=== PATIENT | female | born 1975 | race Caucasian/White ===

== ENCOUNTER 2018-11-23 10:49 | Inpatient (IN) | payer OTHER ==
--- NOTE | 2018-11-23 10:54 | EDPHY ---
H & P Time Seen by Provider: 11/23/18 10:53 HPI/ROS: CHIEF COMPLAINT: Mental health hold for grave disability HISTORY OF PRESENT ILLNESS: Patient arrives on a mental health hold placed by psychiatrist at [facility]. History of schizophrenia has been off medications wandering partially clothed in the streets recently lost her purse. She was placed on a mental health hold prior to arrival. Denies medical complaints, but altered and perseverating on arrival asking "can I call you Jack? " Further history and review of systems not obtainable because the patient just is perseverating, asking me multiple times "are you Jack? Can I call you Jack?" PAST MEDICAL HISTORY: Paranoid schizophrenia Social history: Unable due to altered mental status. [facility] client/ patient. Lives with parents. Social history from Dr. Watson, patient's psychiatrist, spoke with her at 1115. General Appearance: Alert and ambulatory, mildly agitated. Eyes: No scleral icterus. ENT, Mouth: Normal mucous membranes. Respiratory: Normal respiratory effort, breath sounds equal, lungs are clear to auscultation. Cardiovascular: Regular rate and rhythm. Gastrointestinal: Abdomen is soft and non tender. Neurological: Alert, ambulatory. Will follow simple commands but is rambling and without clear answers questions as documented in the HPI. Skin: Warm and dry, no rashes. She arrived with lipstick all over her forehead and both cheeks. Musculoskeletal: No extremity deformity or tenderness. Psychiatric: See HPI. Emergency Department course/MDM: Arrives on a mental health hold. It is placed by her psychiatrist for grave disability. Plan for labs and urine, mental health evaluation for psychiatric inpatient placement. Differential considered including but not limited to schizophrenia, drug abuse, alcohol intoxication, metabolic problem. Patient very agitated and uncooperative despite reassurance, given 10 mg of Haldol and 2 mg Ativan for sedation for her agitation and psychosis and to facilitate appropriate evaluation in the emergency department. 1426: The patient will be transferred to [facility] for inpatient psychiatric hospital bed not available at this facility, in stable condition; accepting physician is Dr. Luo. EMTALA form completed. Constitutional: Initial Vital Signs Temperature (C) 36.8 C 11/23/18 10:49 Heart Rate 100 11/23/18 10:49 Respiratory Rate 18 11/23/18 10:49 Blood Pressure 120/87 H 11/23/18 10:49 O2 Sat (%) 97 11/23/18 10:49 O2 Delivery Mode Room Air Allergies/Adverse Reactions: No Known Allergies Allergy (Unverified 11/23/18 11:11) Home Medications: Medication Instructions Recorded Unobtainable 11/23/18 Medical Decision Making - Data Points Laboratory Results: Laboratory Results 11/23/18 11:09 11/23/18 11:09 11/23/18 11/23/18 11/23/18 11:09 11:09 11:09 WBC 7.39 10^3/uL 10^3/uL (3.80-9.50) RBC 4.19 10^6/uL 10^6/uL (4.18-5.33) Hgb 13.4 g/dL g/dL (12.6-16.3) Hct 38.3 % % (38.0-47.0) MCV 91.4 fL fL (81.5-99.8) MCH 32.0 pg pg (27.9-34.1) MCHC 35.0 g/dL g/dL (32.4-36.7) RDW 13.4 % % (11.5-15.2) Plt Count 316 10^3/uL 10^3/uL (150-400) MPV 9.4 fL fL (8.7-11.7) Neut % (Auto) 65.0 % % (39.3-74.2) Lymph % (Auto) 24.0 % % (15.0-45.0) Baca % (Auto) 9.3 % % (4.5-13.0) Eos % (Auto) 1.2 % % (0.6-7.6) Baso % (Auto) 0.4 % % (0.3-1.7) Nucleat RBC Rel Count 0.0 % % (0.0-0.2) Absolute Neuts (auto) 4.80 10^3/uL 10^3/uL (1.70-6.50) Absolute Lymphs (auto) 1.77 10^3/uL 10^3/uL (1.00-3.00) Absolute Monos (auto) 0.69 10^3/uL 10^3/uL (0.30-0.80) Absolute Eos (auto) 0.09 10^3/uL 10^3/uL (0.03-0.40) Absolute Basos (auto) 0.03 10^3/uL 10^3/uL (0.02-0.10) Absolute Nucleated RBC 0.00 10^3/uL 10^3/uL (0-0.01) Immature Gran % 0.1 % % (0.0-1.1) Immature Gran # 0.01 10^3/uL 10^3/uL (0.00-0.10) Sodium 137 mEq/L mEq/L (135-145) Potassium 3.7 mEq/L mEq/L (3.5-5.2) Chloride 106 mEq/L mEq/L (97-110) Carbon Dioxide 22 mEq/l mEq/l (22-31) Anion Gap 9 mEq/L mEq/L (6-14) BUN 15 mg/dL mg/dL (7-23) Creatinine 0.7 mg/dL mg/dL (0.6-1.0) Estimated GFR > 60 Glucose 122 mg/dL H mg/dL (70-100) Calcium 9.1 mg/dL mg/dL (8.5-10.4) Beta HCG, Qual NEGATIVE Ethyl Alcohol < 10 mg/dL mg/dL (0-10) Medications Given: Discontinued Medications Haloperidol Lactate (Haldol Injection) 10 mg IM EDNOW ONE Stop: 11/23/18 12:22 Last Admin: 11/23/18 12:34 Dose: 10 mg Lorazepam (Ativan Injection) 2 mg IM EDNOW ONE Stop: 11/23/18 12:21 Last Admin: 11/23/18 12:34 Dose: 2 mg Departure - Departure Disposition: Other Psych, Not [place] Clinical Impression: Schizophrenia Qualifiers: Schizophrenia type: paranoid schizophrenia Qualified Code(s): F20.0 - Paranoid schizophrenia Condition: Fair Referrals: Patient,NotPresent [Primary Care Provider] - As per Instructions
[2018-11-23 11:17] LABS: PLATELET COUNT 316 10^3/uL (150-400)
[2018-11-23] MEDS ORDERED: LORazepam 2 MG/ML INJ IM ONE (12:20)
[2018-11-23] MEDS ORDERED: HALOPERIDOL LACT 5 MG/ML INJ IM ONE (12:21)
--- NOTE | 2018-11-23 17:29 | ASMTTLCEVL ---
[facility] Evaluation - Basic Information Evaluation Start Date and 11/23/2018 12:00 PM Time Hospital Status Answers: M1 Hold 72-hr M1 Hold Start Date 11/23/2018 09:50 AM and Time Patient statement Notes: Are we in [place]? I was born in [place]. Can I have a turkey [place]? Narrative Notes: Pt is a 43 year old female with a history of schizophrenia. Pt was sent from her psychiatrist Dr. Christina Watson at [facility] on an M1 hold that noted, " 43 year old woman with a hx of schizophrenia. Currently gravely disabled walking the streets partially clothed, recently lost her car, purse and phone. , not sleeping, unable to express self due to high level of confusion and disorganization, no taking medication, cannot be re-directed. Requires hospital for stabilization for safety." Per Dr. Watson, pt has been overtaking her Dexedrine and not taking her haldol. Pt recently took her family's car without permission. Pt does the best on Clozaril and vraylar. Pt presents as disorganized and disheveled. When this handbook writer began the evaluation, pt stated, " Can I have a turkey sandwich? I'd rather not talk. I would like to request risperdal. It's an antipsychotic. Really, I'd rather not talk anymore." Pt was unable to participate in the evaluation. Pt was given Haldol 10mg IM and 2mg IM at 12:34pm in the ED. The information collected for this evaluation was obtained from pt's Father Jeff. [facility] stated that pt was hospitalized at [facility] in July 2018. When she discharged, she appeared to be doing better for awhile but then she regressed. [facility] stated pt went "running around outside without any clothes:. [facility] stated pt went back to [facility], however the dates are unclear. [facility] stated pt had been improving following this 2nd hospitalization, then in September/October, pt's behavior became "erratic." [facility] states that last several weeks, she stays up until 3am every night. This past Friday, pt returned home without her car and did not know where her car was. [facility] stated he called the police and they were able to locate the car at a lingerie store near [facility]. [facility] stated pt was unable to communicate what had happened. Diagnosis History Notes: Pt has a hx of schizophrenia. Prior suicide attempts Notes: Per FOC, pt had one overdose when she was in college. FOC stated he is not sure if it was suicide attempt or not but pt [place] to [place]. Pt overdosed and was "found by someone." FOC stated pt was hospitalized following that overdose but he does not remember where. Prior hospitalizations Notes: [facility] July 2018. [facility] stated pt was hospitalized two more times at [facility] following her July 2018 hospitalization. Treatment Responses Notes: Pt appears to decompensate and is not medication compliant. History of violence Notes: Per father, pt does not have a hx of violence. [facility]: Dr. Christina Watson [phone] Medications (name, dosage, route, freq uency) Notes: Haldol 5mg and Dexedrine 10mg TID, Per Dr. Watson, pt elizondo't been taking her Haldol. Pt's father stated pt "is addicted to the dexedrine., but it really does seem to help her symptoms." In the past, pt took Clozaril and Vrayler and those medications worked best per Dr. Watson Allergies/Reaction Notes: Nka Sleep Notes: Per FOC, pt has been staying up until 3am every night. He does not believe pt has been getting sufficient amount of sleep. Appetite Notes: [facility] stated , he has observed pt eating more sweets than she normally does. Medical/Surgical history Notes: [facility] stated pt may have had Tardive Dyskenisia but is not sure. Substance use history (frequency, intensity, his tory, duration) Notes: Unable to obtain a hx from pt, but [facility] reports that pt has been using marijuana. Family composition Notes: Pt lives with her parents. Need for family Answers: Yes participation in patient's care Family psychiatric/substance abuse history Notes: Unable to assess. Developmental history Notes: [facility] stated pt had normal childhood development prior to her senior year in High School when she began showing symptoms of schizophrenia. Marital status/children Notes: Unmarried, no children. Living situation Notes: Pt lives with her parents. Sexual history/orientation Notes: Unable to assess. Peer support/family strengths Notes: Unable to assess. Education level/history Notes: Per [facility], pt attended [employer], completed 1 year and then had to drop out. Pt then enrolled at , but ultimately dropped out as well. Work history Notes: Pt is on disability. Notes: None Legal Notes: None reported. Mandaeism/Spiritual Notes: Unable to assess Leisure Notes: Per FOC, pt enjoys making jewelry and abstract art. Collateral Notes: Father-Jeff Dr Christina Watson Patient's strengths Answers: Artistic/Creative/Musical (Please select at least TWO strengths): Supportive Family [facility] Evaluation - Mental Status Exam Appearance: Answers: Disheveled Eye Contact: Answers: Absent Mood: Answers: Euthymic Affect: Answers: Distracted Behavior: Answers: Inappropriate Restless Wandering Speech: Answers: Irrelevant Hypersexual Thought Process: Answers: Disorganized Disoriented Insight: Answers: Poor Judgement: Answers: Poor Pt reported to have Answers: No suicidal/self-injuring ideation/behavior? Pt reported to be making Answers: No suicidal/self-injuring threats? Pt reported to have Answers: No aggression/assault ideation/behavior? Pt reported to be making Answers: No aggression/assault threats? Pt exhibits inability to Answers: Yes care for self/grave disability? Ideation/behavior is Answers: No chronic? Patient has a specific Answers: No plan? Pt has access to means to Answers: No execute the plan? Ideation involves Answers: No serious/lethal intent? Ideation has Answers: No delusional/hallucinatory content? History of Answers: Yes suicidal/self-injuring ideation, behavior, or threats? History of Answers: No aggressive/assaultive ideation, behavior, or threats? History of serious Answers: No physical harm to self/others while in treatment setting? [facility] Evaluation - Suicide/Homicide Risk Suicide Risk Factors: Answers: Schizophrenia Homicide/violence risk Answers: None factors: Current Suicidal Answers: No Ideation? Suicide Internal Answers: Other Notes: Unable to assess. Protective Factors: Suicide External Answers: Other Notes: Unable to assess Protective Factors: Ranking of patient's Answers: Low suicidal risk: Ranking of patient's Answers: Low homicidal risk: [facility] Evaluation - Wrap-up BDI Total Score: Unable to complete BSS Total Score: Unable to complete AXIS I Diagnosis (include DSM-V and ICD-10 codes), must also be entered in [employer], which is the source of truth. Notes: Schizophrenia 295.90 (F20.9) In consultation with [facility] ED physician, Anton Merida MD and on-call psychiatrist, Edvin Luo MD, both concurred that pt appears to meet 27-65 criteria requiring psychiatric hospitalization as pt appears to be gravely disabled due to a mental illness condition. . Pt was read the Patient Rights and Responsibilities Statement 11/23/18 14:40 and pt given photocopy of Rights. Pt declined to sign pt rights. Pt was given the 3N prohibited belongings list while in the ED. Date Signed: 11/23/2018 03:10 PM Electronically Signed By:Ara Salazar
--- NOTE | 2018-11-23 17:35 | ASMTTCLDSP ---
TLC Discharge Disposition Disposition: Answers: Admit Discharge Concerns/Recommendations: Notes: In consultation with [facility] ED physician, Anton Merida MD and on-call psychiatrist, Edvin Luo MD, both concurred that pt appears to meet 27-65 criteria requiring psychiatric hospitalization as pt appears to be gravely disabled due to a mental illness condition. . Pt was read the Patient Rights and Responsibilities Statement 11/23/18 14:40 and pt given photocopy of Rights. Pt declined to sign pt rights. Pt was given the 3N prohibited belongings list while in the ED. Was patient given the Answers: Yes Inpatient Behavioral Health Prohibited Belongings List while in the ED? For inpatient Edvin Luo MD admission, the following psychiatrist agreed to accept patient for admission to Behavioral Health ([facility]): Date Signed: 11/23/2018 03:11 PM Electronically Signed By:Ara Salazar
[2018-11-23] MEDS ORDERED: ACETAMINOPHEN 325 MG TAB PO PRN (18:48)
[2018-11-23] MEDS ORDERED: OLANZapine DISINTEGR 5 MG TAB PO PRN (18:48)
[2018-11-23] MEDS ORDERED: MAG HYDROX/AL HYDROX/SIMETH 30 ML UDCUP PO PRN (18:48)
[2018-11-23] MEDS ORDERED: LORazepam 0.5 MG TAB PO PRN (18:48)
[2018-11-23] MEDS ORDERED: MAGNESIUM HYDROXIDE 30 ML UDCUP PO PRN (18:48)
[2018-11-23] MEDS ORDERED: OLANZapine DISINTEGR 10 MG TAB PO SCH (21:00)
--- NOTE | 2018-11-24 07:34 | ASMTBHMTP ---
Master Treatment Plan Master Treatment Plan Answers: Mood Instability with for: Psychosis Date: 11/23/2018 Diagnosis on Admission: Schizophrenia 295.90 (F20.9) Expected length of stay: 3-5 Days Reason for admission: Notes: Per Report: Pt is a 43 year old female with a history of schizophrenia. Pt was sent from her psychiatrist Dr. Christina Watson at [facility] on an M1 hold that noted, " 43 year old woman with a hx of schizophrenia. Currently gravely disabled walking the streets partially clothed, recently lost her car, purse and phone. , not sleeping, unable to express self due to high level of confusion and disorganization, no taking medication, cannot be re-directed. Requires hospital for stabilization for safety." Per Dr. Watson, pt has been overtaking her Dexedrine and not taking her haldol. Pt recently took her family's car without permission. Pt does the best on Clozaril and vraylar. Pt presents as disorganized and disheveled. When this insurance writer began the evaluation, pt stated, " Can I have a turkey sandwich? I'd rather not talk. I would like to request risperdal. It's an antipsychotic. Really, I'd rather not talk anymore." Pt was unable to participate in the evaluation. Pt was given Haldol 10mg IM and 2mg IM at 12:34pm in the ED. The information collected for this evaluation was obtained from pt's Father Jeff. [facility] stated that pt was hospitalized at [facility] in July 2018. When she discharged, she appeared to be doing better for awhile but then she regressed. [facility] stated pt went "running around outside without any clothes:. [facility] stated pt went back to [facility], however the dates are unclear. [facility] stated pt had been improving following this 2nd hospitalization, then in September/October, pt's behavior became "erratic." [facility] states that last several weeks, she stays up until 3am every night. This past Friday, pt returned home without her car and did not know where her car was. [facility] stated he called the police and they were able to locate the car at a lingerie store near [facility]. [facility] stated pt was unable to communicate what had happened. Patient's stated presenting problems: Notes: "I need to stabilize on my medications." Patient's goals for treatment: Notes: "get meds to work." Patient's strengths: Notes: "Some" Identify supports outside of hospital: Notes: "Family and Friends" Discharge criteria: Notes: Patient will demonstrate more stable mood by discharge. Initial disposition plan/considerations: Notes: "Return home with parents." Master Treatment Plan Required Signatures Psychiatrist signature: Answers: Psychiatrist: RN on-shift signature: Answers: RN: Patient signature: Answers: Patient: Date Signed: 11/24/2018 07:34 AM Electronically Signed By:Jose G Durham
[2018-11-24] MEDS ORDERED: RISPERIDONE 1 MG ODT TAB SL PRN (07:56)
[2018-11-24] MEDS: PALIPERIDONE 3 MG TAB.ER PO SCH (08:22)
--- NOTE | 2018-11-24 10:12 | BAPA ---
[f rep st] ADMISSION PSYCHIATRIC ASSESSMENT DATE OF SERVICE: 11/24/2018 CHIEF COMPLAINT: "I really don't want to talk right now. I just want coffee. Where's the coffee. I just want coffee." This SUPERVISOR [employer] discusses medications with patient as recommended by patient's outpatient psychiatrist. The patient reports she is not interested in starting Clozaril or Vraylar. Patient requests risperidone. Discussed options, risks and benefits with the patient, including trial of Invega. The patient agrees to begin Invega 6 mg p.o. daily. Patient then walks away from this SUPERVISOR SHEET [employer]URING, reports she does not want to provide any further information for evaluation and continues to perseverate on wanting coffee. HISTORY OF PRESENT ILLNESS: From the ED note dated 11/23/18, the patient arrived to the emergency department on an M1 hold that was placed by the patient 's psychiatrist at [facility]. The patient has a history of schizophrenia and has been off her medications, wandering, partially clothed in the streets, recently lost her purse. The patient was placed on an M1 hold prior to arriving to the emergency department. The patient's mental status was reported as altered and patient was perseverating on arrival, asking "can I call you Jack?" The patient asked the question multiple times, "Are you, Jack? Can I call you Jack?" From the [facility] evaluation dated 11/23/18, the patient was placed on a 72-hour M1 hold with start date and time of 11/23/18, at 9:50 a.m. Patient reported to the [facility] journeyman sheet metal worker, "Are we in [place]? I was born in [place]. Can I have a turkey sandwich?" M1 hold states that the patient is a 43-year-old woman with history of schizophrenia, currently gravely disabled, walking the streets partially clothed, recently lost her car, purse and phone. Not sleeping. Unable to express herself due to high level of confusion and disorganization. Not taking medications. Cannot be redirected. Requires hospital for stabilization for safety. The patient reportedly abusing Dexedrine and not taking Haldol as prescribed. The patient recently took her family's car without permission. The patient's outpatient psychiatrist reported patient has done well on Clozaril and Vrylar in the past. The patient has also been on risperidone in the past. However, reportedly the patient had made reports to her parents that she did not like the way risperidone made her feel. The patient also has been on Haldol in the past. This SUPERVISOR SHEET MANUFACTURING spoke to patient's outpatient psychiatrist, Dr. Watson, prior to meeting with the patient and Dr. Watson provided this information and also agreed with Invega 6 mg p.o. daily if patient agreed to begin this medication. Plan would be to begin patient on Invega and switch to long-acting injectable prior to discharge as patient has a history of nonadherence to taking medications as prescribed. For further details and more specific details to the patient's walking the streets, losing car, purse and phone, please refer to the [facility] evaluation. TREATMENT TEAM MEETING: Patient refused to join treatment team meeting this morning. PAST PSYCHIATRIC HISTORY: The patient has a history of schizophrenia. According to patient's father, as reported to [facility] journeyman sheet metal worker, patient has had 1 suicide attempt by overdose while in college. However, father also reported that he is not sure if it was a suicide attempt, but patient drove to the [facility] border to buy pills. Patient overdosed and was "found by someone." The patient's father reported the patient was hospitalized following that overdose and he does not remember where. The patient has been hospitalized at [facility] in July of 2018. The patient's father reported the patient was hospitalized 2 more times at [facility] following her July 2018 hospitalization. The patient's father reported the patient has been staying up until 3 a.m. every night and he reported that he believes patient has not been getting sufficient amount of sleep. ALLERGIES: No known allergies. CURRENT MEDICATIONS: 1. Tylenol 650 mg p.o. q.4 hours p.r.n. 2. Ativan 0.5 to 1 mg p.o. q.4 hours p.r.n. 3. Maalox syrup 30 mL p.o. q.6 hours p.r.n. 4. Milk of magnesia 30 mL p.o. daily p.r.n. 5. Nicorette 2 mg q.1 hour p.r.n. 6. Invega 6 mg p.o. daily. 7. Risperdal M 1 mg SL q.6 hours p.r.n. PAST MEDICAL/SURGICAL HISTORY: There is no medical or surgical history reported. The patient's father reported to the [facility] journeyman sheet metal worker that the patient may have been hospitalized in the past for tardive dyskinesia, but he is not sure. This SUPERVISOR SHEET MANUFACTURING spoke to the patient's outpatient psychiatrist, Dr. Watson. Dr. Watson said that the patient has not had tardive dyskinesia in the past; however, has had some EPS symptoms. No recent EPS symptoms reported. The patient currently has no EPS symptoms. SOCIAL HISTORY: The patient's father reported the patient had normal childhood development prior to her senior year in high school when she began showing symptoms of schizophrenia. The patient is not and has no children. The patient resides with her parents. The patient attended [employer], completed 1 year and then had to drop out. The patient then enrolled at , but ultimately dropped out as well. The patient is currently on disability and is not working. The patient has no history of duty. No legal history reported. No moravian or spiritual practice reported. The patient's father reported patient enjoys making jewelry and abstract art for leisure activities. SUBSTANCE USE HISTORY: Patient's father reported the patient has been using marijuana. No other substance use history reported. Will continue to gather substance use history throughout the course of the patient's hospitalization. FAMILY PSYCHIATRIC HISTORY: No family psychiatric history reported. Will continue to gather patient's family psychiatric history throughout the course of the patient's hospitalization. ADMISSION LABS AND STUDIES: 1. CBC within normal limits. 2. BMP within normal limits except glucose is elevated at 122. 3. Hemoglobin A1c pending. 4. Liver function within normal limits except AST is elevated at 78, ALT elevated at 54. 5. Lipid panel within normal limits except triglycerides are low at 31, cholesterol low at 126, LDL cholesterol calculated low at 50, VLDL cholesterol low at 6, non-HDL cholesterol low at 56, LDL/HDL ratio low at 0.71. 6. TSH within normal limits at 1.010. 7. Beta HCG qualitative test negative. 8. Toxicology screen: Ethyl alcohol level 0. MENTAL STATUS EXAM: The patient is a well-nourished female looking stated chronological age. Attire is appropriate. Dress is hospital garb. Grooming status is inappropriate and disheveled. Ambulation is independent. Gait is normal and coordinated. Posture is normal and relaxed. Eye contact is inappropriate, avoided. Motor activity is appropriate with purposeful, organized, coordinated movements with no involuntary movements noted. Attitude is uncooperative, guarded, defensive. The patient appears disinterested, distractible, and does not relate well to this interviewer. Language production is spontaneous. Rate is fluent. Latency of response is adequate with variable tone. Articulation is clear. Patient reports mood as "okay" with inappropriate affect. The patient's affect is constricted. The patient's thought process is nonlinear and illogical with loose associations. Patient is easily derailed and distracted. The patient's thought process is disorganized. The patient does not report suicidal or homicidal thoughts, ideas, or plans. The patient denies auditory or visual hallucinations. Patient denies delusions. The patient does not appear to be attending to internal stimuli. The patient is oriented to person and place. The patient's attention and concentration are poor. Patient's insight and judgment are poor. The patient does not report undesirable side effects from current medications. DIAGNOSES: Based on the patient's history and current presentation, the patient 's diagnoses are: 1. Schizophrenia. 2. Cannabis use disorder, unknown severity. FORMULATION: The patient is a 43-year-old female, single, unemployed, living with her parents and is treated by Dr. Watson, psychiatrist at [facility]. Patient placed on an M1 hold due to grave disability. Presents involuntarily and is hospitalized for safety, crisis stabilization, and medication management. The patient requires continued inpatient care because of current acute psychosis. The patient presents with problems of medication nonadherence, abusing Dexedrine. The patient's life has been affected by these problems including the inability to attend to her ADLs and to appropriately communicate her basic needs. The patient is also engaged in high-risk behaviors ; see HPI above. The exacerbation of symptoms was due to patient's nonadherence to prescribed medications. The patient has a past psychiatric history of schizophrenia. The patient has a history of doing well tolerating and responding to psychotropic medications in the past including risperidone, Clozaril and Vrylar. The patient has also been on Haldol in the past. In consult with the patient's outpatient psychiatrist, will begin Invega 6 mg p.o. daily with plan to begin long-acting injectable prior to discharge due to patient's long history of nonadherence. The patient is a high suicide safety. The patient is a high safety risk due to current acute psychosis. Protective factors while hospitalized include ongoing safety checks, active involvement in treatment and support from our treatment team. Patient could benefit from inpatient hospitalization for safety, crisis stabilization, and medication evaluation. PLAN: 1. Medications: After reviewing options, risks and benefits with the patient, the patient agrees to continue current medications listed above. 1. Psychotropic medications: After reviewing options, risks, and benefits with the patient, patient agrees to continue current medications with following changes: ____. No other medication changes at this time as more time is needed to determine ongoing tolerability and efficacy. Plan is to continue to observe patient for response and side effects from medications, and ongoing monitoring and evaluation. 2. Review with patient informed consent and recommendations for psychotropic medication treatment listed below 3. Labs: no additional labs at this time 4. Therapy: continue milieu and group therapy 5. Further investigation including gathering information from patients relatives and review of past case records to inform treatment plan. 6. Safety/Wellness plan and follow-up outpatient appointments to be established prior to discharge. Next steps are for patient to meet with restorative care technician to plan a safe discharge plan and establish outpatient services for ongoing treatment. 7. Confer with inpatient treatment team regarding treatment plan. 8. Address psychosocial stressors by meeting with senior caregiver to establish discharge plan including referrals for outpatient services. 9. Legal status: M1 10. Consider discharge next week if patient is in stable condition, safe, and has a safe discharge plan. 11. Substance abuse interventions: cannabis ESTIMATED LENGTH OF STAY: 7-10 days PSYCHOTROPIC MEDICATION TREATMENT INFORMED CONSENT and RECOMMENDATIONS: Review nature of condition, diagnosis, and prognosis. Review nature and purpose of psychotropic medication treatment. Review type of psychotropic medications being ordered. Review risk and benefits of psychotropic medication treatment. Review probable length of time will need to take medications. Review risk and benefits of not undergoing psychotropic medication treatment. Review alternative treatments to psychotropic medications. Review psychotropic medications contraindications, drug-drug interactions, side effects, and importance of reporting any side effects to a psychiatric provider or nurse during inpatient hospitalization, and upon discharge to patients psychiatric outpatient provider, primary care provider, or other health pediatric care coordinator. Review importance of asking a nurse, psychiatric provider, or primary care provider any questions or problems concerning the psychotropic medications. Verify patient understands the information that has been provided, and understands, accepts, and agrees to psychotropic medications. Review patients safety plan and importance of patient to communicate to staff while hospitalized if patient is ever a danger to self/others, or unable to care for self, and upon discharge, the importance for patient to contact [place] [facility] or [facility], or go to the nearest emergency room, if patient is ever a danger to self/others, or unable to care for self. Recommend that upon discharge patient establish medication management treatment with a psychiatric provider, establishes routine therapy appointments, and follow-up with primary care provider. Verify patient understands and agrees to these recommendations. /[id number]/MODL ESSENCE
--- NOTE | 2018-11-24 10:47 | ASMTCMCOM ---
CM Note CM Note Notes: Client completed MTP and ARELY for [facility] and [facility]. Client mostly sleeps through out the day and presents as disorganized when waken. Client poss. self-pay, Medicaid was alerted for a screen. Client refused to participate in treatment team meeting today and continues to self through out the day. Date Signed: 11/24/2018 10:46 AM Electronically Signed By:Jose G Durham
--- NOTE | 2018-11-24 11:46 | PDMN ---
Medical Necessity Medical necessity: Pt meets inpt criteria per MD order and [facility] M-014-IP, Schizophrenia Spectrum Disorders, Adult: Inpatient Care, 6 days. 43 y/o w/hx schizophrenia currently on M1 hold due to grave disability, admitted w/ schizophrenia and cannabis use disorder, unknown severity, pt requires inpt psychiatric care b/c of current acute psychosis.
--- NOTE | 2018-11-24 13:47 | PDCONSULT ---
[employer] Note: Patient is a 43-year-old female after being placed on a mental health hold by a psychiatrist at [facility]. Per chart review patient has a history of schizophrenia and has been off medications wandering around in the streets partially closed. During the interview she refused to tell me why she was here if anything was wrong with her or any of her medical history. Details and history obtained through chart review and discussion with mental health providers. Past medical history Apparently paranoid schizophrenia Social history Unable to obtain due to acutely altered mental status. Patient lives with parents apparently at times. Surgical history Unable to obtain Family history Unable to obtain Allergies Through chart review no known drug allergies Review of systems Unable to obtain review of systems as patient unwilling to cooperate and acutely mentally ill Vital signs Blood pressure 120/87 and heart rate 100 respiration 18 saturating 97% on room air temperature 36.8 degrees C Examination General alert and ambulatory but mildly agitated HEENT PERRLA mucous members are moist pink and acyanotic head is atraumatic normocephalic Lungs clear to auscultation bilaterally Cardiovascular regular rate and rhythm Abdomen is soft nontender nondistended in all 4 quadrants without organomegaly with no costovertebral angle tenderness Extremities but no colonic clubbing cyanosis edema or calf pain Skin warm and dry no rashes no lesions or ecchymosis Musculoskeletal no extremity deformities or tenderness Neuro cranial nerves 2-12 grossly intact no focal neurologic deficits Lymph no lymphadenopathy Assessment plan 43-year-old female with a history of paranoid schizophrenia admitted on a mental health hold for acute psychoses Acute psychoses Management per Psychiatry Rule out toxication although review of labs no alcohol and a negative tox screen Check TSH Hyperglycemia no known history of diabetes A1c pending Transaminitis-this may be secondary to medications, drugs or alcohol abuse. Drug levels negative as well as alcohol level Would monitor LFTs Chart and records reviewed S the patient is new to me
[2018-11-25] MEDS: PALIPERIDONE 3 MG TAB.ER PO SCH (08:56)
[2018-11-25] MEDS: NICOTINE POLACRILEX 2 MG GUM B PRN ×2 (09:19→16:19)
--- NOTE | 2018-11-25 10:38 | SOAPPROG ---
SOAP Progress Note Assessment/Plan: Assessment: Schizophrenia, Cannabis Use Disorder. No improvement noted (see subjective/ objective note). Patient is not safe to discharge at this time as patient continues to exhibit signs of psychosis, and express psychosis symptoms. Patient requires continued inpatient care because of current psychosis, and requires inpatient level of care to stabilize in order to no longer be gravely disabled due to mental illness. Patients support system has inability to manage functional impairment at lower level of care. Patients thought process is disorganized, patient is withdrawn from social interactions, is unable to independently and appropriately attend to ADLS and appropriately communicate her basic needs. Patient could benefit from continued inpatient hospitalization for crisis stabilization, safety, and medication evaluation. Plan: 1. Continue current medications. 2. Review with patient informed consent and recommendations for psychotropic medication treatment listed below 3. Labs: no additional labs at this time 4. Therapy: continue milieu and group therapy 5. Further investigation including gathering information from patients relatives and review of past case records to inform treatment plan. 6. Safety/Wellness plan and follow-up outpatient appointments to be established prior to discharge. Next steps are for patient to meet with janitor caretaker to plan a safe discharge plan and establish outpatient services for ongoing treatment. 7. Confer with inpatient treatment team regarding treatment plan. 8. Psychosocial stressors addressed through sample case porter. 9. Legal status: M1 10. Consider discharge tomorrow if patient is in stable condition, safe, and has a safe discharge plan. 11. Substance abuse interventions: THC PSYCHOTROPIC MEDICATION TREATMENT INFORMED CONSENT and RECOMMENDATIONS: Review nature of condition, diagnosis, and prognosis. Review nature and purpose of psychotropic medication treatment. Review type of psychotropic medications being ordered. Review risk and benefits of psychotropic medication treatment. Review probable length of time patient will need to take medications. Review risk and benefits of not undergoing psychotropic medication treatment. Review alternative treatments to psychotropic medications. Review psychotropic medications contraindications, drug-drug interactions, side effects, and importance of reporting any side effects to a psychiatric provider or nurse during inpatient hospitalization, and upon discharge to patients psychiatric outpatient provider, primary care provider, or other health child care attendant. Review importance of asking a nurse, psychiatric provider, or primary care provider any questions or problems concerning the psychotropic medications. Verify patient understands the information that has been provided, and understands, accepts, and agrees to psychotropic medications. Review patients safety plan and importance of patient to report to staff while hospitalized if patient is ever a danger to self/others, or unable to care for self, and upon discharge, the importance for patient to contact [place] [facility] or [facility], or go to the nearest emergency room, if patient is ever a danger to self/others, or unable to care for self. Recommend that upon discharge patient establish medication management treatment with a psychiatric provider, establishes routine therapy appointments, and follow-up with primary care provider. Verify patient understands and agrees to these recommendations. 11/25/18 10:42 Subjective: Following up with patient for evaluation of psychosis and safety. Patient reports, "What about the stimulants? I take Dexedrine in the morning." Patient reports no side effects from current medications, and agrees to continue current medications. Objective: Vital Signs Temp Pulse Resp BP Pulse Ox 36.8 C 57 L 12 123/69 H 95 11/23/18 18:13 11/23/18 18:13 11/23/18 18:13 11/23/18 18:13 11/23/18 18:13 MSE: The patient is a well-nourished female looking older chronological age. Attire is appropriate and dress is casual. Grooming status is appropriate. Ambulation is independent. Gait is normal and coordinated. Posture is normal and relaxed. Eye contact is appropriate. Motor activity is appropriate with purposeful, organized, coordinated movements; with no involuntary movements. Attitude is uncooperative. Patient appears disinterested and distractible and does not relate well to this interviewer. Language production is spontaneous. R/R/V normal. Articulation is clear. Patient reports mood as okay with incongruent constricted affect. Patients thought process is non-linear and illogical. Disorganized and nonsensical. Patient denies suicidal thoughts, denies homicidal ideation. Patient denies auditory, visual hallucinations. Patient denies delusions. Patient does not appear to be attending to internal stimuli. Patients attention and concentration are poor. Patient is oriented to person, place. Patients insight and judgment are poor. - Time Spent With Patient Time Spent With Patient: 15 minutes, met with patient individually. - Pending Discharge Pending Discharge Within 24 Hours: No Pending Discharge Within 48 Hours: No ICD10 Worksheet Patient Problems: Problems Problem Status Onset Schizophrenia Acute
--- NOTE | 2018-11-25 12:50 | ASMTCMCOM ---
CM Note CM Note Notes: CC checks in with client briefly. Client presents as semi-alert, polite, soft spoken, flat affect. Client denies any feelings of anxiety, depression, S/I-H/I or AVH. Client suggests she is "feeling fine, today." Client presents as disorganized and remains to her self in her room. Date Signed: 11/25/2018 12:49 PM Electronically Signed By:Jose G Durham. .Steven.Melissa.,R.P
[2018-11-25] MEDS: NICOTINE 21 MG/24 HR PATCH TD SCH (16:13)
--- NOTE | 2018-11-26 08:21 | SOAPPROG ---
SOAP Progress Note Assessment/Plan: Assessment: Schizophrenia, Cannabis Use Disorder. Slight improvement noted (see subjective/ objective note). Patient is not safe to discharge at this time as patient continues to exhibit signs of psychosis, and express psychosis symptoms. Patient requires continued inpatient care because of current psychosis, and requires inpatient level of care to stabilize in order to no longer be gravely disabled due to mental illness. Patients support system has inability to manage functional impairment at lower level of care. Patients thought process is disorganized, patient is withdrawn from social interactions, is unable to independently and appropriately attend to ADLS and appropriately communicate her basic needs. Patient placed on [facility] by MD with plan to be continued at [facility] following discharge. Patient has a history of mediation non-adherence and plan is to begin Invega Sustenna prior to discharge to improve adherence reduce likelihood of decompensation and risk. Patient could benefit from continued inpatient hospitalization for crisis stabilization , safety, and medication evaluation. Plan: 1. Continue current medications. 2. Review with patient informed consent and recommendations for psychotropic medication treatment listed below 3. Labs: no additional labs at this time 4. Therapy: continue milieu and group therapy 5. Further investigation including gathering information from patients relatives and review of past case records to inform treatment plan. 6. Safety/Wellness plan and follow-up outpatient appointments to be established prior to discharge. Next steps are for patient to meet with tire care manager to plan a safe discharge plan and establish outpatient services for ongoing treatment. 7. Confer with inpatient treatment team regarding treatment plan. 8. Psychosocial stressors addressed through social work case manager. 9. Legal status: [facility] 10. Consider discharge tomorrow if patient is in stable condition, safe, and has a safe discharge plan. 11. Substance abuse interventions: THC PSYCHOTROPIC MEDICATION TREATMENT INFORMED CONSENT and RECOMMENDATIONS: Review nature of condition, diagnosis, and prognosis. Review nature and purpose of psychotropic medication treatment. Review type of psychotropic medications being ordered. Review risk and benefits of psychotropic medication treatment. Review probable length of time patient will need to take medications. Review risk and benefits of not undergoing psychotropic medication treatment. Review alternative treatments to psychotropic medications. Review psychotropic medications contraindications, drug-drug interactions, side effects, and importance of reporting any side effects to a psychiatric provider or nurse during inpatient hospitalization, and upon discharge to patients psychiatric outpatient provider, primary care provider, or other health home care nurse. Review importance of asking a nurse, psychiatric provider, or primary care provider any questions or problems concerning the psychotropic medications. Verify patient understands the information that has been provided, and understands, accepts, and agrees to psychotropic medications. Review patients safety plan and importance of patient to report to staff while hospitalized if patient is ever a danger to self/others, or unable to care for self, and upon discharge, the importance for patient to contact [facility] or 1, or go to the nearest emergency room, if patient is ever a danger to self/others, or unable to care for self. Recommend that upon discharge patient establish medication management treatment with a psychiatric provider, establishes routine therapy appointments, and follow-up with primary care provider. Verify patient understands and agrees to these recommendations. 11/26/18 08:20 Subjective: Following up with patient for evaluation of psychosis and safety. Patient reports, "I am doing fine." Patient reports no side effects from current medications, and agrees to continue current medications. Objective: Vital Signs Temp Pulse Resp BP Pulse Ox 36.8 C 57 L 12 123/69 H 95 11/23/18 18:13 11/23/18 18:13 11/23/18 18:13 11/23/18 18:13 11/23/18 18:13 Patient placed on short-term certification for grave disability yesterday by . MSE: The patient is a well-nourished female looking older chronological age. Attire is appropriate and dress is casual. Grooming status is appropriate. Ambulation is independent. Gait is normal and coordinated. Posture is normal and relaxed. Eye contact is appropriate. Motor activity is appropriate with purposeful, organized, coordinated movements; with no involuntary movements. Attitude is cooperative. Patient appears attentive and relates fairly well to this interviewer. Language production is spontaneous. Rate is hesitant, latency of response is prolonged, with low volume, tone is soft. Articulation is clear. Patient reports mood as okay with incongruent and constricted affect. Patients thought process remains non-linear and illogical. Disorganized and nonsensical at times. Patient denies suicidal thoughts, denies homicidal ideation. Patient denies auditory, visual hallucinations. Patient denies delusions. Patient does not appear to be attending to internal stimuli. Patients attention and concentration are fair. Patient is oriented to person, place, and time. Patients insight and judgment are poor. - Time Spent With Patient Time Spent With Patient: 15 minutes, met with patient individually. - Pending Discharge Pending Discharge Within 24 Hours: No Pending Discharge Within 48 Hours: No ICD10 Worksheet Patient Problems: Problems Problem Status Onset Schizophrenia Acute
[2018-11-26] MEDS: NICOTINE 21 MG/24 HR PATCH TD SCH (08:40)
[2018-11-26] MEDS: NICOTINE POLACRILEX 2 MG GUM B PRN ×2 (08:40→16:28)
[2018-11-26] MEDS: PALIPERIDONE 3 MG TAB.ER PO SCH (08:40)
[2018-11-26 08:53] VITALS: BP 93/50
--- NOTE | 2018-11-26 12:37 | ASMTCMCOM ---
CM Note CM Note Notes: CC met with Ct. Ct out of her room and waiting for lunch; she states she is lightheaded because of being hungry. Affect constricted, Ct claims she is feeling better since getting her own clothes and is ready to d/c. Conversation limited to speaking about her need for d/c due to being a smoker. Presentation was anxious and speech perseverative. Date Signed: 11/26/2018 12:36 PM Electronically Signed By:Dayanara Gonsalez. [facility]
--- NOTE | 2018-11-27 08:03 | SOAPPROG ---
SOAP Progress Note Assessment/Plan: Assessment: Schizophrenia complicated by medication non-adherence and reportedly cannabis use. Cannabis Use Disorder, unknown severity. Slight improvement noted, notably improved sleep (see subjective/objective note). Patient is not safe to discharge at this time as patient continues to exhibit signs of psychosis, and express psychosis symptoms. Patient requires continued inpatient care because of current psychosis, and requires inpatient level of care to stabilize in order to no longer be gravely disabled due to mental illness. Patients support system has inability to manage functional impairment at lower level of care. Patients thought process is disorganized, patient is withdrawn from social interactions, is unable to independently and appropriately attend to ADLS and appropriately communicate her basic needs. Patient placed on [facility] by MD with plan to be continued at [facility] following discharge. Patient has a history of mediation non-adherence and plan is to begin Invega Sustenna prior to discharge to improve adherence reduce likelihood of decompensation and risk. Patient could benefit from continued inpatient hospitalization for crisis stabilization, safety, and medication evaluation. Plan: 1. Continue current medications. 2. Review with patient informed consent and recommendations for psychotropic medication treatment listed below 3. Labs: no additional labs at this time 4. Therapy: continue milieu and group therapy 5. Further investigation including gathering information from patients relatives and review of past case records to inform treatment plan. 6. Safety/Wellness plan and follow-up outpatient appointments to be established prior to discharge. Next steps are for patient to meet with care administrative tech to plan a safe discharge plan and establish outpatient services for ongoing treatment. 7. Confer with inpatient treatment team regarding treatment plan. 8. Psychosocial stressors addressed through geriatric case manager. 9. Legal status: [facility] 10. Consider discharge tomorrow if patient is in stable condition, safe, and has a safe discharge plan. 11. Substance abuse interventions: THC PSYCHOTROPIC MEDICATION TREATMENT INFORMED CONSENT and RECOMMENDATIONS: Review nature of condition, diagnosis, and prognosis. Review nature and purpose of psychotropic medication treatment. Review type of psychotropic medications being ordered. Review risk and benefits of psychotropic medication treatment. Review probable length of time patient will need to take medications. Review risk and benefits of not undergoing psychotropic medication treatment. Review alternative treatments to psychotropic medications. Review psychotropic medications contraindications, drug-drug interactions, side effects, and importance of reporting any side effects to a psychiatric provider or nurse during inpatient hospitalization, and upon discharge to patients psychiatric outpatient provider, primary care provider, or other health long term care administrator. Review importance of asking a nurse, psychiatric provider, or primary care provider any questions or problems concerning the psychotropic medications. Verify patient understands the information that has been provided, and understands, accepts, and agrees to psychotropic medications. Review patients safety plan and importance of patient to report to staff while hospitalized if patient is ever a danger to self/others, or unable to care for self, and upon discharge, the importance for patient to contact [facility] or [facility], or go to the nearest emergency room, if patient is ever a danger to self/others, or unable to care for self. Recommend that upon discharge patient establish medication management treatment with a psychiatric provider, establishes routine therapy appointments, and follow-up with primary care provider. Verify patient understands and agrees to these recommendations. 11/27/18 08:02 Subjective: Following up with patient for evaluation of psychosis and safety. Patient reports, "I'm doing okay." Patient reports no side effects from current medications, and agrees to continue current medications. Objective: Vital Signs Temp Pulse Resp BP Pulse Ox 36.3 C 120 H 12 93/50 L 95 11/26/18 08:52 11/26/18 08:52 11/26/18 08:52 11/26/18 08:52 11/26/18 08:52 MSE: The patient is a well-nourished female looking older chronological age. Attire is appropriate and dress is casual. Grooming status is appropriate. Ambulation is independent. Gait is normal and coordinated. Posture is normal and relaxed. Eye contact is appropriate. Motor activity is appropriate with purposeful, organized, coordinated movements; with no involuntary movements. Attitude is cooperative. Patient appears attentive and relates fairly well to this interviewer. Language production is spontaneous. Rate is hesitant, latency of response is prolonged, with low volume, tone is soft. Articulation is clear. Patient reports mood as okay with incongruent and constricted affect. Patients thought process remains non-linear and illogical. Disorganized and nonsensical at times. Patient denies suicidal thoughts, denies homicidal ideation. Patient denies auditory, visual hallucinations. Patient denies delusions. Patient does not appear to be attending to internal stimuli. Patients attention and concentration are fair. Patient is oriented to person, place, and time. Patients insight and judgment are poor. - Time Spent With Patient Time Spent With Patient: 15 minutes, met with patient individually. - Pending Discharge Pending Discharge Within 24 Hours: No Pending Discharge Within 48 Hours: No ICD10 Worksheet Patient Problems: Problems Problem Status Onset Schizophrenia Acute
[2018-11-27] MEDS: NICOTINE POLACRILEX 2 MG GUM B PRN ×2 (09:08→15:52)
[2018-11-27] MEDS: PALIPERIDONE 3 MG TAB.ER PO SCH (09:09)
[2018-11-27] MEDS: NICOTINE 21 MG/24 HR PATCH TD SCH (09:09)
--- NOTE | 2018-11-27 10:51 | ASMTCMCOM ---
CM Note CM Note Notes: Client presents as non verbal during check-in today. Client appears anxious, non-verbal during interaction today. Client suggests she is not having any feelings of anxiety, depression, S/I-H/I or AVH. Client affect is restrictive. Date Signed: 11/27/2018 10:50 AM Electronically Signed By:Jose G Durham. .[place].,R.P
[2018-11-28] MEDS: NICOTINE 21 MG/24 HR PATCH TD SCH (09:30)
[2018-11-28] MEDS: PALIPERIDONE 3 MG TAB.ER PO SCH (09:30)
--- NOTE | 2018-11-28 11:03 | ASMTCMCOM ---
CM Note CM Note Notes: CC speaks with client during check-in. Client is presenting better today than previous days, semi-alert, talkative, limited insight, affect appropriate towards situation. Client suggests she is amenable towards taking the MEDINA every two weeks for Risperdal C. When speaking with client she notes an issue with a past experience with an MEDINA, issue is with duration of shot (1 month) vs. two weeks. D/C plan for client to discharge to [facility] next week.* Date Signed: 11/28/2018 11:03 AM Electronically Signed By:Jose G Durham. .[place].,R.P
[2018-11-28] MEDS: NICOTINE POLACRILEX 2 MG GUM B PRN (16:36)
--- NOTE | 2018-11-28 19:21 | SOAPPROG ---
SOAP Progress Note Assessment/Plan: Assessment: Patient is a 43-year-old female after being placed on a mental health hold by a psychiatrist at [facility]. Per chart review patient has a history of schizophrenia and has been off medications wandering around in the streets partially clothed. WEEKEND PLAN: 11/28/18 18:37 1. This morning, patient initially refused Invega b/c she said she preferred Risperdal, but later changed her mind and took Invega. Patient says she wants to be on MEDINA form of medication. It was explained that there is MEDINA for both Invega and Risperdal. 2. Patient made several posters during art therapy group describing how much she likes dexedrine. It has been explained by multiple providers and staff that dexedrine can have serious adverse SE's including mood lability, irritability, decreased sleep and psychosis. 3. Plan to d/c to [facility] once stable. 4. ST Subjective: Patient very disorganized and confused. She told RN this AM she wanted to take Risperdal instead of Invega because she needed to take MEDINA. When told the plan was to start Invega Sustenna, which is the MEDINA form of Invega, patient agreed to continue on Invega PO. If patient shows good response to Invega and tolerates PO form, then it would be reasonable to start her on Invega Sustenna. Patient extremely perseverative about being back on dexedrine, despite multiple providers and staff warning her about the risk of adverse effects from stimulant , including worsening her psychosis. Patient has no insight into the nature or severity of her mental illness. She has concerning recent h/o not making very good decisions. Hopefully this will improve with proper treatment. Objective: Vital Signs Temp Pulse Resp BP Pulse Ox 36.3 C 120 H 12 93/50 L 95 11/26/18 08:52 11/26/18 08:52 11/26/18 08:52 11/26/18 08:52 11/26/18 08:52 MSE: Affect: Labile Mood: "OK" TP: Disorganized, perseverative re: dexedrine TC: Denies SI/HI, still delusional Insight/Judgment: Poor - Time Spent With Patient Time Spent With Patient: 15" - Pending Discharge Pending Discharge Within 24 Hours: No Pending Discharge Within 48 Hours: No ICD10 Worksheet Patient Problems: Problems Problem Status Onset Schizophrenia Acute
[2018-11-29] MEDS: PALIPERIDONE 3 MG TAB.ER PO SCH (08:10)
[2018-11-29] MEDS: NICOTINE 21 MG/24 HR PATCH TD SCH (08:10)
[2018-11-29] MEDS: NICOTINE POLACRILEX 2 MG GUM B PRN ×2 (10:41→14:47)
--- NOTE | 2018-11-29 18:02 | SOAPPROG ---
SOAP Progress Note Assessment/Plan: Assessment: Patient is a 43-year-old female after being placed on a mental health hold by a psychiatrist at [facility]. Per chart review patient has a history of schizophrenia and has been off medications wandering around in the streets partially clothed. WEEKEND PLAN: 11/28/18 18:37 1. This morning, patient initially refused Invega b/c she said she preferred Risperdal, but later changed her mind and took Invega. Patient says she wants to be on [facility]INA form of medication. It was explained that there is MEDINA for both Invega and Risperdal. 2. Patient made several posters during art therapy group describing how much she likes dexedrine. It has been explained by multiple providers and staff that dexedrine can have serious adverse SE's including mood lability, irritability, decreased sleep and psychosis. 3. Plan to d/c to [facility] once stable. 4. STC 11/29/18 17:58 1. Patient took Invega this AM w/o any complaints. 2. Patient is more linear and logical than at admission. Her behavior is appropriate on unit. 3. Plan is to eventually convert to Invega Sustenna. 4. Plan to d/c to [facility] when stable. 5. STC Subjective: Patient continues to request dexedrine despite MD's warnings about risks and adverse effects of this medication. Patient made her 4th re examiner in art therapy today stating that dexedrine helped her "control" her weight and prevented compulsive "over-eating." Patient also stated dexedrine helped her write "research papers." Patient said creating these posters is "therapeutic" for her. Objective: Vital Signs Temp Pulse Resp BP Pulse Ox 36.3 C 120 H 12 93/50 L 95 11/26/18 08:52 11/26/18 08:52 11/26/18 08:52 11/26/18 08:52 11/26/18 08:52 MSE: Affect: Brighter Mood: "OK" TP: More coherent and linear TC: Denies SI/ HI, some delusions Insight/Judgment: Poor - Time Spent With Patient Time Spent With Patient: 15" - Pending Discharge Pending Discharge Within 24 Hours: No Pending Discharge Within 48 Hours: No ICD10 Worksheet Patient Problems: Problems Problem Status Onset Schizophrenia Acute
--- NOTE | 2018-11-30 06:31 | SOAPPROG ---
SOAP Progress Note Assessment/Plan: Assessment: Schizophrenia complicated by medication non-adherence and reportedly cannabis use. Cannabis Use Disorder, unknown severity. Slight improvement noted, notably improved sleep (see subjective/objective note). Patient is not safe to discharge at this time as patient continues to exhibit signs of psychosis, and express psychosis symptoms. Patient requires continued inpatient care because of current psychosis, and requires inpatient level of care to stabilize in order to no longer be gravely disabled due to mental illness. Patients support system has inability to manage functional impairment at lower level of care. Patients thought process is disorganized, patient is withdrawn from social interactions, is unable to independently and appropriately attend to ADLS and appropriately communicate her basic needs. Patient placed on [facility] by MD with plan to be continued at [facility] following discharge. Patient has a history of mediation non-adherence and plan is to begin Risperdal Consta 2q weeks prior to discharge to improve adherence reduce likelihood of decompensation and risk. Patient could benefit from continued inpatient hospitalization for crisis stabilization, safety, and medication evaluation. Plan: 1. DC Invega and begin Risperdal 2 mg po QD. 2. Review with patient informed consent and recommendations for psychotropic medication treatment listed below 3. Labs: no additional labs at this time 4. Therapy: continue milieu and group therapy 5. Further investigation including gathering information from patients relatives and review of past case records to inform treatment plan. 6. Safety/Wellness plan and follow-up outpatient appointments to be established prior to discharge. Next steps are for patient to meet with transition of care specialist to plan a safe discharge plan and establish outpatient services for ongoing treatment. 7. Confer with inpatient treatment team regarding treatment plan. 8. Psychosocial stressors addressed through keycase assembler. 9. Legal status: [facility] 10. Consider discharge tomorrow if patient is in stable condition, safe, and has a safe discharge plan. 11. Substance abuse interventions: THC PSYCHOTROPIC MEDICATION TREATMENT INFORMED CONSENT and RECOMMENDATIONS: Review nature of condition, diagnosis, and prognosis. Review nature and purpose of psychotropic medication treatment. Review type of psychotropic medications being ordered. Review risk and benefits of psychotropic medication treatment. Review probable length of time patient will need to take medications. Review risk and benefits of not undergoing psychotropic medication treatment. Review alternative treatments to psychotropic medications. Review psychotropic medications contraindications, drug-drug interactions, side effects, and importance of reporting any side effects to a psychiatric provider or nurse during inpatient hospitalization, and upon discharge to patients psychiatric outpatient provider, primary care provider, or other health care manager cna. Review importance of asking a nurse, psychiatric provider, or primary care provider any questions or problems concerning the psychotropic medications. Verify patient understands the information that has been provided, and understands, accepts, and agrees to psychotropic medications. Review patients safety plan and importance of patient to report to staff while hospitalized if patient is ever a danger to self/others, or unable to care for self, and upon discharge, the importance for patient to contact [facility] or [facility], or go to the nearest emergency room, if patient is ever a danger to self/others, or unable to care for self. Recommend that upon discharge patient establish medication management treatment with a psychiatric provider, establishes routine therapy appointments, and follow-up with primary care provider. Verify patient understands and agrees to these recommendations. 11/30/18 06:31 Subjective: Following up with patient for evaluation of psychosis and safety. Patient reports, "I would prefer to do a 2 week shot, and would rather be on Risperdal because it has a 2 week shot. I have done this in the past. I know my doctor is going to want me to be on a shot, and I would prefer to have it every 2 weeks." Patient reports no side effects from current medications, and agrees to switch from Invega 6 mg po QD to Risperdal 2 mg po QD. Objective: Vital Signs Temp Pulse Resp BP Pulse Ox 36.3 C 120 H 12 93/50 L 95 11/26/18 08:52 11/26/18 08:52 11/26/18 08:52 11/26/18 08:52 11/26/18 08:52 MD REPORT FROM WEEKEND: POC would prefer she take Risperdal Consta Q2 weeks, rather than Invega. Dr. Watson wants her to go to [facility]. MSE: The patient is a well-nourished female looking older chronological age. Attire is appropriate and dress is casual. Grooming status is appropriate. Ambulation is independent. Gait is normal and coordinated. Posture is normal and relaxed. Eye contact is appropriate. Motor activity is appropriate with purposeful, organized, coordinated movements; with no involuntary movements. Attitude is cooperative. Patient appears attentive and relates fairly well to this interviewer. Language production is spontaneous. R/R/V normal. Articulation is clear. Patient reports mood as okay with congruent affect. Patients thought process has improved, fairly linear and logical. Patient denies suicidal thoughts, denies homicidal ideation. Patient denies auditory, visual hallucinations. Patient denies delusions. Patient does not appear to be attending to internal stimuli. Patients attention and concentration are fair. Patient is oriented to person, place, and time. Patients insight and judgment are poor. - Time Spent With Patient Time Spent With Patient: 15 minutes, met with patient individually. - Pending Discharge Pending Discharge Within 24 Hours: No Pending Discharge Within 48 Hours: No ICD10 Worksheet Patient Problems: Problems Problem Status Onset Schizophrenia Acute
[2018-11-30] MEDS ORDERED: PALIPERIDONE PALMITATE 234 MG/1.5 ML SYR IM ONE (07:36)
[2018-11-30] MEDS: NICOTINE 21 MG/24 HR PATCH TD SCH (08:37)
[2018-11-30] MEDS ORDERED: PALIPERIDONE 3 MG TAB.ER PO SCH (09:00)
[2018-11-30] MEDS ORDERED: risperiDONE 2 MG TAB PO SCH (09:00)
--- NOTE | 2018-11-30 11:26 | ASMTCMCOM ---
CM Note CM Note Notes: Ct. was seen during team's rounds. Ct. reported that she is doing fine. Ct. agreed to take Invega shot. Ct. concerned about not taking Dexedrine. She would like to re-start it. Ct. denied that she over used prescription. Ct. agrees to step down to [facility] when ready for discharge. Date Signed: 11/30/2018 11:25 AM Electronically Signed By:Jia Riley.[facility]
[2018-11-30] MEDS: NICOTINE POLACRILEX 2 MG GUM B PRN (15:25)
--- NOTE | 2018-12-01 08:42 | SOAPPROG ---
SOAP Progress Note Assessment/Plan: Assessment: Schizophrenia complicated by medication non-adherence and reportedly cannabis use. Cannabis Use Disorder, unknown severity. Improvement noted (see subjective /objective note). Patient to discharge to [facility] this week. Plan: 1. Continue current medications. Patient to have second loading dose of Invega Sustenna administered at [facility] after discharge 2. Review with patient informed consent and recommendations for psychotropic medication treatment listed below 3. Labs: no additional labs at this time 4. Therapy: continue milieu and group therapy 5. Further investigation including gathering information from patients relatives and review of past case records to inform treatment plan. 6. Safety/Wellness plan and follow-up outpatient appointments to be established prior to discharge. Next steps are for patient to meet with career advisor to plan a safe discharge plan and establish outpatient services for ongoing treatment. 7. Confer with inpatient treatment team regarding treatment plan. 8. Psychosocial stressors addressed through spring encaser. 9. Legal status: [facility] 10. Consider discharge tomorrow if patient is in stable condition, safe, and has a safe discharge plan. 11. Substance abuse interventions: THC PSYCHOTROPIC MEDICATION TREATMENT INFORMED CONSENT and RECOMMENDATIONS: Review nature of condition, diagnosis, and prognosis. Review nature and purpose of psychotropic medication treatment. Review type of psychotropic medications being ordered. Review risk and benefits of psychotropic medication treatment. Review probable length of time patient will need to take medications. Review risk and benefits of not undergoing psychotropic medication treatment. Review alternative treatments to psychotropic medications. Review psychotropic medications contraindications, drug-drug interactions, side effects, and importance of reporting any side effects to a psychiatric provider or nurse during inpatient hospitalization, and upon discharge to patients psychiatric outpatient provider, primary care provider, or other health direct care supervisor. Review importance of asking a nurse, psychiatric provider, or primary care provider any questions or problems concerning the psychotropic medications. Verify patient understands the information that has been provided, and understands, accepts, and agrees to psychotropic medications. Review patients safety plan and importance of patient to report to staff while hospitalized if patient is ever a danger to self/others, or unable to care for self, and upon discharge, the importance for patient to contact [facility] or [facility], or go to the nearest emergency room, if patient is ever a danger to self/others, or unable to care for self. Recommend that upon discharge patient establish medication management treatment with a psychiatric provider, establishes routine therapy appointments, and follow-up with primary care provider. Verify patient understands and agrees to these recommendations. 12/01/18 08:41 Subjective: Following up with patient for evaluation of psychosis and safety. Patient reports, "Doing great, thanks." Patient reports no side effects from medications. Objective: Vital Signs Temp Pulse Resp BP Pulse Ox 36.3 C 120 H 12 93/50 L 95 11/26/18 08:52 11/26/18 08:52 11/26/18 08:52 11/26/18 08:52 11/26/18 08:52 MD CONSULT CO RECOVERY/[facility]: Dr. Watson has agreed with plan for patient to discharge this week to [facility] and for Invega Sustenna second loading dose of 156 mg IM to be administered at [facility]. MSE: The patient is a well-nourished female looking older chronological age. Attire is appropriate and dress is casual. Grooming status is appropriate. Ambulation is independent. Gait is normal and coordinated. Posture is normal and relaxed. Eye contact is appropriate. Motor activity is appropriate with purposeful, organized, coordinated movements; with no involuntary movements. Attitude is cooperative. Patient appears attentive and relates fairly well to this interviewer. Language production is spontaneous. R/R/V normal. Articulation is clear. Patient reports mood as okay with incongruent and constricted affect. Patients thought process has improved, fairly linear and logical. Patient denies suicidal thoughts, denies homicidal ideation. Patient denies auditory, visual hallucinations. Patient denies delusions. Patient does not appear to be attending to internal stimuli. Patients attention and concentration are fair. Patient is oriented to person, place, and time. Patients insight and judgment are poor. - Time Spent With Patient Time Spent With Patient: 15 minutes, met with patient individually. - Pending Discharge Pending Discharge Within 24 Hours: No Pending Discharge Within 48 Hours: No ICD10 Worksheet Patient Problems: Problems Problem Status Onset Schizophrenia Acute
--- NOTE | 2018-12-01 11:29 | ASMTCMCOM ---
CM Note CM Note Notes: CC reached out to Thu Levy at [phone]. She needs to confirm a discharge date with client's out-patient team & parents, etc. CC will start to fax over client's chart over today. Waiting on CR for D/C date. Date Signed: 12/01/2018 11:28 AM Electronically Signed By:Jose G Durham. .[place].,R.P
[2018-12-01] MEDS: NICOTINE 21 MG/24 HR PATCH TD SCH ×2 (11:53→12:43)
[2018-12-01] MEDS: NICOTINE POLACRILEX 2 MG GUM B PRN (12:46)
--- NOTE | 2018-12-02 08:28 | SOAPPROG ---
SOAP Progress Note Assessment/Plan: Assessment: Schizophrenia complicated by medication non-adherence and reportedly cannabis use. Cannabis Use Disorder, unknown severity. Improvement noted (see subjective /objective note). Patient to discharge to [facility] this week. Plan: 1. Continue current medications. Patient to have second loading dose of Invega Sustenna administered at [facility] after discharge 2. Review with patient informed consent and recommendations for psychotropic medication treatment listed below 3. Labs: no additional labs at this time 4. Therapy: continue milieu and group therapy 5. Further investigation including gathering information from patients relatives and review of past case records to inform treatment plan. 6. Safety/Wellness plan and follow-up outpatient appointments to be established prior to discharge. Next steps are for patient to meet with janitor caretaker to plan a safe discharge plan and establish outpatient services for ongoing treatment. 7. Confer with inpatient treatment team regarding treatment plan. 8. Psychosocial stressors addressed through case preparer and liner. 9. Legal status: [facility] 10. Consider discharge tomorrow if patient is in stable condition, safe, and has a safe discharge plan. 11. Substance abuse interventions: THC PSYCHOTROPIC MEDICATION TREATMENT INFORMED CONSENT and RECOMMENDATIONS: Review nature of condition, diagnosis, and prognosis. Review nature and purpose of psychotropic medication treatment. Review type of psychotropic medications being ordered. Review risk and benefits of psychotropic medication treatment. Review probable length of time patient will need to take medications. Review risk and benefits of not undergoing psychotropic medication treatment. Review alternative treatments to psychotropic medications. Review psychotropic medications contraindications, drug-drug interactions, side effects, and importance of reporting any side effects to a psychiatric provider or nurse during inpatient hospitalization, and upon discharge to patients psychiatric outpatient provider, primary care provider, or other health ambulatory care nurse. Review importance of asking a nurse, psychiatric provider, or primary care provider any questions or problems concerning the psychotropic medications. Verify patient understands the information that has been provided, and understands, accepts, and agrees to psychotropic medications. Review patients safety plan and importance of patient to report to staff while hospitalized if patient is ever a danger to self/others, or unable to care for self, and upon discharge, the importance for patient to contact [facility] or [facility], or go to the nearest emergency room, if patient is ever a danger to self/others, or unable to care for self. Recommend that upon discharge patient establish medication management treatment with a psychiatric provider, establishes routine therapy appointments, and follow-up with primary care provider. Verify patient understands and agrees to these recommendations. 12/02/18 08:28 Subjective: Following up with patient for evaluation of psychosis and safety. Patient reports, "Doing well. Look forward to leaving to [facility]." Patient reports no side effects from medications. Objective: Vital Signs Temp Pulse Resp BP Pulse Ox 36.3 C 120 H 12 93/50 L 95 11/26/18 08:52 11/26/18 08:52 11/26/18 08:52 11/26/18 08:52 11/26/18 08:52 MD CONSULT CO RECOVERY/[facility]: Dr. Watson has agreed with plan for patient to discharge this week to [facility] and for Invega Sustenna second loading dose of 156 mg IM to be administered at [facility]. MSE: The patient is a well-nourished female looking stated chronological age. Attire is appropriate and dress is casual. Grooming status is appropriate. Ambulation is independent. Gait is normal and coordinated. Posture is normal and relaxed. Eye contact is appropriate. Motor activity is appropriate with purposeful, organized, coordinated movements; with no involuntary movements. Attitude is cooperative. Patient appears attentive and relates fairly well to this interviewer. Language production is spontaneous. R/R/V normal. Articulation is clear. Patient reports mood as okay with congruent affect. Patients thought process has improved, fairly linear and logical. Patient denies suicidal thoughts, denies homicidal ideation. Patient denies auditory, visual hallucinations. Patient denies delusions. Patient does not appear to be attending to internal stimuli. Patients attention and concentration are fair. Patient is oriented to person, place, and time. Patients insight and judgment are poor. ICD10 Worksheet Patient Problems: Problems Problem Status Onset Schizophrenia Acute
[2018-12-02] MEDS: NICOTINE 21 MG/24 HR PATCH TD SCH (09:44)
[2018-12-02] MEDS: NICOTINE POLACRILEX 2 MG GUM B PRN (09:45)
--- NOTE | 2018-12-02 11:02 | ASMTBHDC ---
Notes Note: Notes: CC was able to confirm client's discharge appts: Follow up with: [facility] Address: [address], [place] [address] [address] Next Appt: December 03 (12/03/18) at 9:15am.* Date Signed: 12/02/2018 11:01 AM Electronically Signed By:Jose G Durham. .[place].,R.P
--- NOTE | 2018-12-03 06:21 | BDS ---
[f rep st] BEHAVIORAL HEALTH DISCHARGE SUMMARY REASON FOR ADMISSION: From the ED note dated 11/23/2018, the patient was placed on an M1 hold by the Psychiatrist at [facility]. The patient has a history of schizophrenia, has been off her medications, wandering partially clothed in the streets. The patient was placed on a mental health hold prior to arriving to the emergency room. The patient's mental status was reportedly altered during the ER evaluation. The patient was admitted on an M1 hold due to being gravely disabled due to a mental illness. Patient was admitted for safety, crisis stabilization, and medication management. ADMITTING DIAGNOSES: 1. Schizophrenia. 2. Rule out cannabis use disorder. ADMISSION PHYSICAL EXAMINATION: Patient was seen on 11/24/2018, for history and physical consultation for medical clearance for inpatient psychiatric hospitalization and treatment. The patient was medically cleared for inpatient psychiatric hospitalization and treatment for further details, please refer to [employer] consultant note document dated 11/24/2018. ADMISSION LABS: 1. CBC within normal limits. 2. BMP within normal limits except glucose was elevated at 122. 3. Hemoglobin A1c within normal limits at 5.7. 4. Liver function within normal limits except AST was elevated at 78 and ALT elevated at 54. 5. Lipid panel within normal limits except triglycerides are low at 31, cholesterol low at 126, LDL cholesterol calculated low at 50, VLDL cholesterol low at 6, non-HDL cholesterol low at 56, LDL/HDL ratio was low at 0.71. 6. TSH within normal limits at 1.010. 7. Beta HCG qualitative test negative. 8. Toxicology screen. Ethyl alcohol level was 0. MAJOR PROCEDURES OR TESTS: None. HOSPITAL COURSE: The most prominent symptoms and behaviors while the patient was here were isolated from social interaction upon admission and several days after. The patient was also irritable and reporting delusions at time of admission. Treatment modalities utilized were milieu and group therapy. Invega 6 mg p.o. daily was started to target psychosis symptoms, was tolerated with no report of side effects and with good response. Invega Sustenna 234 mg IM first loading dose was administered on 11/30/2018, was tolerated with no report of side effects and with good response. Second loading dose of Invega Sustenna 156 mg IM is due 12/07/2018, at day 8. Patient has improved considerably with no signs of psychiatric symptoms and no psychiatric symptoms expressed. Patient reports she has improved since admission, states to be in stable condition, feels safe to discharge, and she contracts for safety. Patients response to treatment was good. There were no adverse or unexpected results of treatment. The patient was safe throughout stay, active in treatment , engaged in groups, and was appropriate with staff. Patient met with treatment team prior to discharge to assess readiness to discharge and review discharge plan. The treatment team consensus is the patient in stable condition , has a safe discharge plan, and is ready to discharge today. CONDITION AT DISCHARGE: Patient is in stable condition and is no longer a danger to self or others, and is not gravely disabled due to mental illness. Patient is no longer in need of inpatient level of care, and can be safely and effectively treated within the community. The patients level of risk at time of discharge is low. MSE: The patient is casually dressed and with good hygiene , and looks stated age. Patient is sitting, posture is upright, and position is relaxed. Patient appears awake, alert, and responds appropriately and reasonably during interview. Patient is engaged, relates well to interviewer, and emotional facial expression is appropriate to situation and changes appropriately with topic. Patient is cooperative, makes comfortable eye contact , and movements are voluntary, deliberate, coordinated, and smooth and even with no inappropriate movements. Patient makes laryngeal sounds effortlessly and shares conversation appropriately; pace of conversation is appropriate, and stream of talking is fluent; articulation is clear and understandable; word choice is effortless and appropriate for education level; completes sentences, occasionally pausing to think; rate and volume are appropriate for interview and setting. Patient reports mood as euthymic. Patients affect is stable with full variable range, congruent with mood, and appropriate to speech and circumstances. Patient has linear and logical thinking, with no loose associations, tangential thought, thought blocking, concrete thinking, or any other signs of formal thought disorder. Patient denies suicidal and homicidal ideation, and denies hallucinations and delusions. Patient appears to be a reliable historian with sound judgement and good insight into current condition. Patient has no apparent dysfunction in recent or remote memory noted , and no evidence of gross cognitive dysfunction noted at any point during the interview. DISCHARGE DIAGNOSES: Schizophrenia. CURRENT MEDICATIONS: After reviewing options, risks, and benefits with the patient, the patient agrees to continue: Invega Sustenna. The patient to receive 2nd loading dose of Invega Sustenna 156 mg IM at [facility] 12/07/18 (Day 8). Medication is reviewed with the patient at time of discharge to ensure accuracy and patient understanding. DISPOSITION: The patient left hospital independently and voluntarily. The patient will continue to be on a short-term certification. The patient will be admitted to [facility] for ongoing treatment after discharge. A staff member from [facility] is to pick the patient up at time of discharge and transport patient to [facility]. FOLLOWUP: software development coordinator reports the appropriate outpatient follow-up services have been established and outpatient appointments have been scheduled. The patient received written instructions with times and dates of outpatient follow-up appointments. The following follow-up recommendations were provided to the patient at discharge: Continue psychotropic medications as prescribed and attend appointments as scheduled. Report any side effects to a psychiatric outpatient provider, a primary care provider, or other health care attendant. Address any questions or problems concerning the psychotropic medications with a psychiatric outpatient provider, a primary care provider, or other health care attendant. Contact [facility] or [facility], or go to the nearest emergency room, if you are ever a danger to yourself/others, or unable to care for yourself. As soon as possible, establish a routine medication management treatment with a psychiatric provider, establish routine therapy appointments, and follow-up with a primary care provider. LEGAL COURSE: The patient was admitted on an M1 hold for involuntary inpatient psychiatric hospitalization. The patient was then placed on a short-term certification. Short-term certification will be transferred to [facility]. ATTITUDE AT TIME OF DISCHARGE: The patients attitude was positive at time of discharge, and patient reports looking forward to discharging today. The patient reports she feels safe to discharge, is no longer a danger to herself or others, is in stable condition, and contracts for safety. Patient states she will continue medications as prescribed, and establish medication management treatment with an outpatient provider after discharge. Patient reports she understands the information that has been provided to her, and she understands, accepts, and agrees to psychotropic medications. Patient describes internal protective factors as the coping skills she has learned while hospitalized here, and she plans to continue to practice these coping skills after discharge. LABS AND STUDIES: There were no pending labs or studies at time of discharge. ADVANCE DIRECTIVES: There were no advance directives on file, and patient was full code during this hospitalization. The following psychotropic medication treatment informed consent and recommendations were provided to the patient at time of discharge. Patient reports she understands, accepts, and agrees to the information that has been provided. PSYCHOTROPIC MEDICATION TREATMENT INFORMED CONSENT and RECOMMENDATIONS: Review nature of condition, diagnosis, and prognosis. Review nature and purpose of psychotropic medication treatment. Review type of psychotropic medications being prescribed. Review risk and benefits of psychotropic medication treatment. Review probable length of time will need to take medications. Review risk and benefits of not undergoing psychotropic medication treatment. Review alternative treatments to psychotropic medications. Review psychotropic medications contraindications, side effects, and importance of reporting any side effects to a psychiatric provider, primary care provider, or other health care attendant. Review importance of her asking a psychiatric provider or primary care provider any questions or problems concerning the psychotropic medications. Review importance of reporting to a psychiatric provider, primary care provider, or other health care attendant if she plans to or becomes . Review safety plan and the importance to contact [facility] or [facility] , or go to the nearest emergency room, if ever a danger to yourself/others, or unable to care for yourself. Recommend upon discharge to establish routine medication management treatment with a psychiatric provider, establish routine therapy appointments, and follow-up with a primary care provider. Verify patient understands, accepts, and agrees to the information that has been provided. /[id number]/MODL MTDD
--- NOTE | 2018-12-03 08:36 | ASMTCMCOM ---
CM Note CM Note Notes: Client is set to discarge toaday to [facility] staff.* Date Signed: 12/03/2018 08:36 AM Electronically Signed By:Jose G Durham. .[place].,R.P
== END 2018-12-03 09:25 | DRG 885 ==
LOC: EDUNIT# → BBEH 17:18
PROVIDERS: ADMIT Psychiatry & Neurology Psychiatry; ATTEND Psychiatry & Neurology Psychiatry
DX: F20.9 Schizophrenia, unspecified (principal); T43.506A Underdosing of unspecified antipsychotics and neuroleptics, initial encounter; F12.959 Cannabis use, unspecified with psychotic disorder, unspecified
CPT/HCPCS: G0480; J1630; J2060; J2426

== ENCOUNTER → 2018-12-31 | Emergency (ER) | payer OTHER ==